=== PATIENT | male | born 1990 | race Caucasian/White ===

== ENCOUNTER 2020-09-15 06:30 | Day surgery (SDC) | payer OTHER, SELFPAY ==
[~2020-09-15] VITALS: Ht 177.8 cm; Wt 74.8 kg
[2020-09-15] MEDS ORDERED: CEFTRIAXONE SOD 1 GM/ D5W 50 ML IV ONE ×2 (07:00)
[2020-09-15] MEDS ORDERED: MIDAZOLAM HCL 5 MG/5 ML VIAL IVP ONE (07:30)
[2020-09-15] MEDS ORDERED: fentaNYL CITRATE/PF 100 MCG/2 ML AMP IVP ONE (07:30)
[2020-09-15] MEDS ORDERED: LR 1,000 ML IV.SOLN IV ONE (07:30)
[2020-09-15] MEDS ORDERED: SEVOFLURANE 15 MIN GAS INH ONE (07:30)
[2020-09-15] MEDS ORDERED: NS IRRIG SOLN 1000 ML IR ONE (07:30)
[2020-09-15] MEDS ORDERED: PROPOFOL 200MG/ 20ML VIAL (DIPRIVAN) IV ONE (07:30)
[2020-09-15] MEDS ORDERED: fentaNYL CITRATE/PF 100 MCG/2 ML AMP IVP PRN ×2 (08:00)
[2020-09-15] MEDS ORDERED: METOCLOPRAMIDE HCL 10 MG/2 ML VIAL IVP PRN (08:00)
[2020-09-15] MEDS ORDERED: ONDANSETRON HCL 4 MG/2 ML VIAL IVP PRN (08:00)
[2020-09-15] MEDS ORDERED: fentaNYL CITRATE/PF 100 MCG/2 ML AMP ONE (10:43)
[2020-09-15 13:38] VITALS: BP_SYST 103
== END 2020-09-15 13:10 | disposition home or self-care (01) ==
LOC: SMU 06:30 → SDS 06:30
PROVIDERS: ATTEND Urology
DX: N13.2 Hydronephrosis with renal and ureteral calculous obstruction (principal); Z79.899 Other long term (current) drug therapy
CPT/HCPCS: 36415; 52332; 52353; 82360; 87426; 88300; C1758; C1769; C2625; J0696; J2250; J2704; J3010; J7060; J7120; Q9967; 76000